=== PATIENT | male | born 1960 | race Caucasian/White ===

== ENCOUNTER 2018-06-22 18:21 | Emergency (ER) | payer BC ==
--- NOTE | 2018-06-22 18:38 | PDOC ---
Rapid Medical Evaluation Time Seen by Provider: 06/22/18 18:36 Medical Evaluation: I have performed a brief in-person evaluation of this patient. The patient presents with a chief complaint of: irritation to right underarm Pertinent physical exam findings: abscess with surrounding cellulitis of right axillary region I have ordered the following: nothing The patient will proceed to the ED for further evaluation. Discharge Disposition - Diagnosis Cellulitis, Abscess - Referrals Referrals: Nohemi Coates [Primary Care Provider] - - Patient Instructions - Post Discharge Activity
[2018-06-22 18:42] VITALS: BP 152/90; PULSE 100; TEMP 99; BMI 38.0
--- NOTE | 2018-06-22 19:35 | PDOC ---
History of Present Illness - General Chief Complaint: Abscess Boil Stated Complaint: RASH Time Seen by Provider: 06/22/18 18:36 History Source: Patient Exam Limitations: No Limitations - History of Present Illness Initial Comments: 06/22/18 19:30 57-year-old male with no past medical history presents to ED with complaints of irritation redness and swelling under his right armpit over the past 2 days. Patient states he was utilizing crutches secondary to a knee injury is currently resting his weight on his arm pits. Timing/Duration: reports: getting worse Severity: Yes: mild Location: reports: none Respiratory Risk Factors: reports: no cause identified Associated Symptoms: reports: edema, swelling/mass/lumps Past History - Travel Traveled outside of the country in the last 30 days: No - Past Medical History Home Medications: Ambulatory Orders Naproxen [Naprosyn -] 250 mg PO BID 06/22/18 CVA: No COPD: No DVT: No - Immunization History Immunization Up to Date: Yes - Suicide/Smoking/Psychosocial Hx Smoking History: Never smoked Hx Alcohol Use: No Drug/Substance Use Hx: No Substance Use Type: None Patient Lives Alone: Yes Lives with/in: lives alone Review of Systems - Review of Systems Able to Perform ROS?: No Constitutional: No: Symptoms Reported Integumentary: Yes: Erythema, Lumps Neurological: No: Symptoms reported Endocrine: No: Symptoms Reported *Physical Exam - Vital Signs Last Vital Signs Temp Pulse Resp BP Pulse Ox 99.0 F 100 H 16 152/90 99 06/22/18 18:38 06/22/18 18:38 06/22/18 18:38 06/22/18 18:38 06/22/18 18:38 - Physical Exam General Appearance: Yes: Nourished, Appropriately Dressed. No: Apparent Distress Integumentary: positive: Other (Noted multiple erythematous warm to touch abscesses to the right axilla. Surrounding skin mildly erythematous with no increased warmth. No drainage noted. No adenopathy) Neurologic: positive: Motor Strength 5/5 (ambulatory) Procedures - Incision and Drainage I&D Site: Right: Axilla Betadine cleansed: Yes Anesthesia: 1% Lidocaine w/ Epi Volume(ml): 1 Blade Size: 11 Attempts: 2 Complications: none Dressing: Yes Medical Decision Making - Medical Decision Making 06/22/18 19:32 Patient with noted multiple axillary abscesses. I&D done without difficulty. Wound culture obtained. Discharge home with Bactrim and supportive care instructions *DC/Admit/Observation/Transfer Diagnosis at time of Disposition: Cellulitis, Abscess - Discharge Dispostion Disposition: HOME Condition at time of disposition: Improved - Referrals Referrals: Nohemi Coates [Primary Care Provider] - - Patient Instructions Printed Discharge Instructions: DI for Incision and Drainage of a Skin Abscess Additional Instructions: Please apply warm soaks of constant heat 15 minutes 4 times a day as discussed for the next days. Please take antibiotics as prescribed. Please do not apply any topicals including deodorant to the area. If symptoms do not improve over the next 3-4 days please return to the ED. Otherwise he may follow up with your PCP. - Post Discharge Activity
== END 2018-06-22 19:48 | disposition home or self-care (01) ==
LOC: JERFT 18:21 → JER 18:21 → JERFT 19:48
PROC: 0X940ZZ Drainage of Right Axilla, Open Approach (ICD-10-PCS; principal; 2018-06-22)
DX: L02.411 Cutaneous abscess of right axilla (principal); L03.111 Cellulitis of right axilla
CPT/HCPCS: 87070; 87186; 87205; 99281-25

== ENCOUNTER 2018-07-30 05:23 | Day surgery (SDC) | payer BC, OTHER ==
[2018-07-22 12:39] VITALS: BMI 46.7
--- NOTE | 2018-07-30 09:40 | HP ---
Satellite [facility] - Chief Complaint Chief Complaint: R KNEE PAIN History Source: Patient - Past Medical History Allergies/Adverse Reactions: Allergies Allergy/AdvReac Type Severity Reaction Status Date / Time No Known Drug Allergies Allergy Verified 07/22/18 12:25 - Current Medications Current Medications: Home Medications Medication Instructions Recorded Naproxen [Naprosyn -] 250 mg PO BID 06/22/18 Ascorbic Acid [Vitamin C -] 1,000 mg PO DAILY 07/22/18 Aspirin Coated [Ecotrin -] 325 mg PO DAILY 07/22/18 Multivitamin [One Daily] 1 each PO DAILY 07/22/18 [place]-3 Fatty Acids/Fish Oil [Fish 1 each PO DAILY 07/22/18 Oil 1,000 mg Capsule] Vitamin E 1,000 unit PO DAILY 07/22/18 Satellite Physical Exam - Physical Examination Vital Signs: Vital Signs Period Temp Pulse Resp BP Sys/Ho Pulse Ox Last 24 Hr 97.9 F-97.9 F 90-90 18-18 141-141/95-95 97 Extremities: Other (+ RIGHT KNEE JOINT LINE TENDERNESS) Satellite Impression/Plan - Impression/Plan Impression: INTERNAL DERANGEMENT RIGHT KNEE Operative Procedure: ARTHROSCOPY RIGHT KNEE Date to be Performed: 07/30/18
[2018-07-30] MEDS ORDERED: BUPIVACAINE HCL/PF 0.5% (5MG/ML) 10 ML VIAL ONE (09:50)
[2018-07-30] MEDS ORDERED: LIDOCAINE 1%/EPI 1:100000 (20 ML MULTI DOSE VIAL) ONE (09:50)
[2018-07-30] MEDS ORDERED: ACETAMINOPHEN INJECTION 100 ML IVPB ONE (09:55)
[2018-07-30] MEDS ORDERED: PROPOFOL 20 ML ONE ×5 (10:31)
[2018-07-30] MEDS ORDERED: LIDOCAINE 1%/EPI 1:100000 (50 ML MULTI DOSE VIAL) INF ONE (10:51)
[2018-07-30] MEDS ORDERED: BUPIVACAINE HCL/PF (5 MG/ML) 30 ML VIAL IJ ONE (10:55)
[2018-07-30] MEDS ORDERED: KETOROLAC TROMETHAMINE 30 MG/1 ML VIAL ONE (11:11)
--- NOTE | 2018-07-30 11:20 | OP ---
Operative Note - Note: Operative Date: 07/30/18 Pre-Operative Diagnosis: INTERNAL DERANGEMENT R KNEE Operation: ARTHROSCOPY R KNEE WITH MM AND CHONDROPLASTY MFC,M TIB PLAT Post-Operative Diagnosis: Same as Pre-op Surgeon: Jordon Diamond Anesthesia: General Operative Report Dictated: Yes
[2018-07-30 12:12] VITALS: TEMP 98.4
[2018-07-30] MEDS ORDERED: oxyCODONE HCL 5 MG TABLET PO PRN ×2 (12:50)
[2018-07-30] MEDS ORDERED: ONDANSETRON 4 MG/2 ML VIAL IVPUSH PRN (12:50)
[2018-07-30] MEDS ORDERED: LACTATED RINGERS SOLUTION 1,000 ML IV SCH (13:00)
[2018-07-30] MEDS ORDERED: oxyCODONE HCL 5 MG TABLET PO ONE (13:00)
[2018-07-30 17:37] VITALS: BP 120/80; PULSE 84
--- NOTE | 2018-07-31 08:38 | OP ---
DATE OF OPERATION: 07/30/2018 PREOPERATIVE DIAGNOSIS: Internal derangement, right knee. POSTOPERATIVE DIAGNOSIS: Internal derangement, right knee. PROCEDURE: Arthroscopy, right knee, with partial medial meniscectomy and chondroplasty of the medial femoral condyle and medial tibial plateau. SURGICAL ATTENDING: Jordon Diamnod MD ANESTHESIA: General with LMA. CLOSURE: 4-0 nylon. COMPLICATIONS: None. CONDITION: To recovery room in stable condition. DESCRIPTION OF OPERATIVE PROCEDURE: Patient was taken to the operating room on July 30, 2018. General anesthesia with LMA was administered by the anesthesiologist. Right lower extremity was prepped and draped in the usual sterile fashion. The medial and lateral infrapatellar portal sites were infiltrated with 1% Xylocaine with epinephrine. Both portals were then made with a 15 blade followed by blunt trocar. Scope trocar was then placed up into the suprapatellar pouch through the lateral infrapatellar portal. The knee was inflated with a cocktail of 10 mL of 1% Xylocaine, 10 mL of 0.5% Marcaine, 20 mL of arthroscopic saline. After allowing the anesthetic to work inside the knee, the procedure was performed. The pouch was visualized to be clean. The medial and lateral gutters were visualized to be clean. The undersurfaces of the patella and trochlea were visualized to be intact. With valgus stress on the knee, the medial compartment was entered. The medial meniscus was visualized, probed, and found to have a complex tear on its posterior horn. This was debrided back to smooth, stable meniscal tissue with meniscal biter and arthroscopic shaver. The medial femoral condyle was also found to have some grade 2-3 changes. Any loose cartilage was debrided using the shaver. The posteromedial aspect of the tibial plateau also was found to have some significant changes, grade 3-4, and any loose cartilage was debrided using the shaver. At 90 degrees, the ACL was visualized, probed, and found to be intact. In the figure 4 position, the lateral compartment was entered. The lateral meniscus was visualized, probed, and found to be intact. The lateral femoral condyle was run and found to be intact as was the lateral tibial plateau. The knee was irrigated with copious amounts of irrigation. Fluid was drained. The portals were both closed using 4-0 nylon suture. Prior to pulling the scope trocar, 20 mL of 0.5% Marcaine was infused through the cannula for postoperative analgesia. A sterile pressure dressing was placed over the knee. Patient was awakened from anesthesia and transferred to recovery in stable condition. No complications. Estimated blood loss negligible. Cb WEINBERG/[id number]
== END 2018-07-30 14:45 | disposition home or self-care (01) ==
LOC: JASU-SURG 05:23
PROVIDERS: ATTEND Orthopaedic Surgery
PROC: 0SBC4ZZ Excision of Right Knee Joint, Percutaneous Endoscopic Approach (ICD-10-PCS; principal; 2018-07-30 10:15)
DX: S83.231A Complex tear of medial meniscus, current injury, right knee, initial encounter (principal); X58.XXXA Exposure to other specified factors, initial encounter; Y93.9 Activity, unspecified; Y92.9 Unspecified place or not applicable; Y99.9 Unspecified external cause status
CPT/HCPCS: 94760; J0131

== ENCOUNTER 2018-10-06 11:35 | Emergency (ER) | payer BC, OTHER ==
[2018-10-06 11:43] VITALS: BP 130/91; PULSE 96; TEMP 98.6; BMI 44.3
--- NOTE | 2018-10-06 12:16 | PDOC ---
History of Present Illness - General Chief Complaint: Redness To Affected Area Stated Complaint: RASH Time Seen by Provider: 10/06/18 12:13 History Source: Patient Exam Limitations: No Limitations - History of Present Illness Initial Comments: 10/06/18 12:30 CHIEF COMPLAINT: Redness HISTORY OF PRESENT ILLNESS: This is a 57-year-old male with a history of right axillary abscess (MRSA) and meniscus repair who presents with one day of right forearm redness, swelling, and warmth. There is a hard central area nd he reports trying to squeeze pus out of it, but was unable to. He denies fevers/ chills or any other systemic symptoms. Vital signs on arrival are notable for pulse of 96. REVIEW OF SYSTEMS: GENERAL/CONSTITUTIONAL: No fever or chills. No weakness. No weight change. RESPIRATORY: No cough, wheezing, or shortness of breath. MUSCULOSKELETAL: No joint or muscle swelling or pain. No neck or back pain. SKIN: See HPI. HEMATOLOGIC/LYMPHATIC: No anemia, easy bleeding, or history of blood clots. ALLERGIC/IMMUNOLOGIC: No hives or skin allergy. No latex allergy. PHYSICAL EXAM: GENERAL: The patient is awake, alert, and fully oriented, in no acute distress. ENT: Pupils equal, round and reactive to light, extraocular movements intact, sclera anicteric, conjunctiva clear. Neck supple. EXTREMITIES: Normal range of motion, no edema. NEUROLOGICAL: Normal speech, normal gait. CN II-XII grossly intact. PSYCH: Normal mood, normal affect. SKIN: Well-circumscribed area of erythema and warmth with central induration, no fluctance. No lymphangitic streaking. Past History - Past Medical History Allergies/Adverse Reactions: Allergies Allergy/AdvReac Type Severity Reaction Status Date / Time No Known Drug Allergies Allergy Verified 07/22/18 12:25 Home Medications: Ambulatory Orders Naproxen [Naprosyn -] 550 mg PO BID 06/22/18 Ascorbic Acid [Vitamin C -] 1,000 mg PO DAILY 07/22/18 Aspirin Coated [Ecotrin -] 325 mg PO DAILY 07/22/18 Multivitamin [One Daily] 1 each PO DAILY 07/22/18 [place]-3 Fatty Acids/Fish Oil [Fish Oil 1,000 mg Capsule] 1 each PO DAILY Vitamin E 1,000 unit PO DAILY 07/22/18 Mupirocin Ointment [Bactroban 2% Ointment -] 1 applic TP BID #1 tube 10/06/18 Sulfamethoxazole/Trimethoprim [Bactrim Ds Tablet] 1 each PO BID #14 tablet 10/06 Anemia: No Asthma: No Cancer: No Cardiac Disorders: No CVA: No COPD: No CHF: No DVT: No Dementia: No Diabetes: No GI Disorders: No Disorders: No HTN: Yes Hypercholesterolemia: Yes Liver Disease: No Seizures: No Thyroid Disease: No - Immunization History Immunization Up to Date: Yes - Suicide/Smoking/Psychosocial Hx Smoking History: Never smoked Have you smoked in the past 12 months: No Information on smoking cessation initiated: No Hx Alcohol Use: No Drug/Substance Use Hx: No Substance Use Type: None Hx Substance Use Treatment: No *Physical Exam - Vital Signs Last Vital Signs Temp Pulse Resp BP Pulse Ox 98.6 F 96 H 16 130/91 95 10/06/18 11:40 10/06/18 11:40 10/06/18 11:40 10/06/18 11:40 10/06/18 11:40 Moderate Sedation - Procedure Monitoring Vital Signs: Procedure Monitoring Vital Signs Temperature 98.6 F 10/06/18 11:40 Pulse Rate 96 H 10/06/18 11:40 Respiratory Rate 16 10/06/18 11:40 Blood Pressure 130/91 10/06/18 11:40 O2 Sat by Pulse Oximetry (%) 95 10/06/18 11:40 Medical Decision Making - Medical Decision Making 10/06/18 12:34 A/P: 57-year-old male with history of MRSA presenting with right forearm erythema, warmth suspicious for cellulitis. No drainable abscess. No systemic symptoms -Patient offered Dalvance, but does not want IV -Will treat with Bactrim DS bid and Mupirocin ointment -Counseled warm compresses -Outlined affected area -Followup instructions and return precautions reviewed HR repeated and 82. *DC/Admit/Observation/Transfer Diagnosis at time of Disposition: Cellulitis Qualifiers: Site of cellulitis: extremity Site of cellulitis of extremity: upper extremity Laterality: right Qualified Code(s): L03.113 - Cellulitis of right upper limb - Discharge Dispostion Disposition: HOME Condition at time of disposition: Stable Decision to Admit order: No - Prescriptions Prescriptions: Mupirocin Ointment [Bactroban 2% Ointment -] 1 applic TP BID #1 tube Sulfamethoxazole/Trimethoprim [Bactrim Ds Tablet] 1 each PO BID #14 tablet - Referrals Referrals: [facility] [place] [Provider Group] - Patient Instructions Printed Discharge Instructions: DI for Cellulitis -- Adult, DI for Methicillin- Resistant Staph Infection (MRSA) Additional Instructions: -Take Bactrim as prescribed for the full course and use Mupirocin ointment as prescribed -Apply warm compresses several times daily -Return here if you see redness spreading outside the outlined area, if you develop fever, or for any other concerning symptoms - Post Discharge Activity
[2018-10-06] MEDS ORDERED: SULFAMETHOXAZOLE/TRIMETHOPRIM 800MG/160MG D.S. TABLET PO ONE (12:23)
[2018-10-06] MEDS ORDERED: SULFAMETHOXAZOLE/TRIMETHOPRIM 800MG/160MG D.S. TABLET ONE (12:28)
--- NOTE | 2018-10-06 12:39 | PDOC ---
*Physical Exam - Vital Signs Last Vital Signs Temp Pulse Resp BP Pulse Ox 98.6 F 96 H 16 130/91 95 10/06/18 11:40 10/06/18 11:40 10/06/18 11:40 10/06/18 11:40 10/06/18 11:40 ED Treatment Course - Medications Given in the ED: ED Medications Discontinued Medications Generic Name Dose Route Start Last Admin Trade Name Freq PRN Reason Stop Dose Admin Trimethoprim/Sulfamethoxazole 1 each 10/06/18 12:23 10/06/18 12:29 Bactrim Ds - PO 10/06/18 12:24 1 each ONCE ONE Administration Medical Decision Making - Medical Decision Making 10/06/18 12:38 Pt seen by Midlevel Provider under my direct supervision Pt interviewed and examined I agree with plan as outlined by Midlevel Provider *DC/Admit/Observation/Transfer Diagnosis at time of Disposition: Cellulitis Qualifiers: Site of cellulitis: extremity Site of cellulitis of extremity: upper extremity Laterality: right Qualified Code(s): L03.113 - Cellulitis of right upper limb - Discharge Dispostion Disposition: HOME Condition at time of disposition: Stable - Prescriptions Prescriptions: Mupirocin Ointment [Bactroban 2% Ointment -] 1 applic TP BID #1 tube Sulfamethoxazole/Trimethoprim [Bactrim Ds Tablet] 1 each PO BID #14 tablet - Referrals Referrals: [facility] [place] [Provider Group] - Patient Instructions Printed Discharge Instructions: DI for Cellulitis -- Adult, DI for Methicillin- Resistant Staph Infection (MRSA) Additional Instructions: -Take Bactrim as prescribed for the full course and use Mupirocin ointment as prescribed -Apply warm compresses several times daily -Return here if you see redness spreading outside the outlined area, if you develop fever, or for any other concerning symptoms - Post Discharge Activity
== END 2018-10-06 12:53 | disposition home or self-care (01) ==
LOC: JER 11:35
DX: L03.113 Cellulitis of right upper limb (principal); Z86.14 Personal history of Methicillin resistant Staphylococcus aureus infection
CPT/HCPCS: 99281-25

== ENCOUNTER 2019-03-26 06:20 | Emergency (ER) | payer BC ==
[2019-03-26 06:47] VITALS: BP 143/89; PULSE 85; TEMP 98.3; BMI 46.0
--- NOTE | 2019-03-26 07:06 | PDOC ---
History of Present Illness - General Chief Complaint: Abscess Boil Stated Complaint: INSECT BITE Time Seen by Provider: 03/26/19 07:06 History Source: Patient Exam Limitations: No Limitations - History of Present Illness Initial Comments: 03/26/19 07:26 CHIEF COMPLAINT: This is a 58-year-old male with a history of right axillary abscess (MRSA), ED visit for right arm cellulitis treated with Bactrim, and meniscus repair who presents with one day of left-sided abdominal redness, swelling, and tenderness. He reports that he was able to squeeze a small amount of pus out of the area yesterday. He denies fevers/chills or any other systemic symptoms. Vital signs on arrival are unremarkable. HISTORY OF PRESENT ILLNESS: REVIEW OF SYSTEMS: GENERAL/CONSTITUTIONAL: No fever or chills. No weakness. No weight change. HEAD, EYES, EARS, NOSE AND THROAT: No change in vision. No ear pain or discharge. No sore throat. CARDIOVASCULAR: No chest pain or palpitations. RESPIRATORY: No cough, wheezing, or shortness of breath. GASTROINTESTINAL: No nausea, vomiting, diarrhea or constipation. GENITOURINARY: No dysuria, frequency, or change in urination. MUSCULOSKELETAL: No joint or muscle swelling or pain. No neck or back pain. SKIN: See HPI. ALLERGIC/IMMUNOLOGIC: No hives or skin allergy. No latex allergy. PHYSICAL EXAM: GENERAL: The patient is awake, alert, and fully oriented, in no acute distress. HEAD: Normal with no signs of trauma. ENT: Pupils equal, round and reactive to light, extraocular movements intact, sclera anicteric, conjunctiva clear. Neck supple. LUNGS: Clear to auscultation bilaterally. Normal excursion. No respiratory distress or use of accessory muscles. CV: RRR, S1/S2, no MRG. Cap refill < 2 sec. ABDOMEN: Soft, non-distended, non-tender. 14 x 14cm of erythema with central lesion; no fluctuance or drainage, mild induration. EXTREMITIES: Normal range of motion, no edema. NEUROLOGICAL: Normal speech, normal gait. CN II-XII grossly intact. PSYCH: Anxious affect. Past History - Past Medical History Allergies/Adverse Reactions: Allergies Allergy/AdvReac Type Severity Reaction Status Date / Time No Known Drug Allergies Allergy Verified 03/26/19 06:44 Home Medications: Ambulatory Orders Naproxen [Naprosyn -] 550 mg PO BID 06/22/18 Ascorbic Acid [Vitamin C -] 1,000 mg PO DAILY 07/22/18 Aspirin Coated [Ecotrin -] 325 mg PO DAILY 07/22/18 Multivitamin [One Daily] 1 each PO DAILY 07/22/18 [place]-3 Fatty Acids/Fish Oil [Fish Oil 1,000 mg Capsule] 1 each PO DAILY Vitamin E 1,000 unit PO DAILY 07/22/18 Mupirocin Ointment [Bactroban 2% Ointment -] 1 applic TP BID #1 tube 10/06/18 Sulfamethoxazole/Trimethoprim [Bactrim Ds Tablet] 1 each PO BID #14 tablet 10/06 Chlorhexidine Gluconate [Hibiclens For Decolonization -] 1 applic TP DAILY #1 bottle 03/26/19 Mupirocin 22 gm TP BID #1 oint...g. 03/26/19 Sulfamethoxazole/Trimethoprim [Bactrim Ds -] 1 tab PO BID #14 tablet 03/26/19 Anemia: No Asthma: No Cancer: No Cardiac Disorders: No CVA: No COPD: No CHF: No DVT: No Dementia: No Diabetes: No GI Disorders: No Disorders: No HTN: Yes Hypercholesterolemia: Yes Liver Disease: No Seizures: No Thyroid Disease: No - Immunization History Immunization Up to Date: Yes - Suicide/Smoking/Psychosocial Hx Smoking History: Never smoked Have you smoked in the past 12 months: No Information on smoking cessation initiated: No Hx Alcohol Use: No Drug/Substance Use Hx: No Substance Use Type: None Hx Substance Use Treatment: No *Physical Exam - Vital Signs Last Vital Signs Temp Pulse Resp BP Pulse Ox 98.3 F 85 20 143/89 98 03/26/19 06:45 03/26/19 06:45 03/26/19 06:45 03/26/19 06:45 03/26/19 06:45 Medical Decision Making - Medical Decision Making 03/26/19 08:11 A/P: 58-year-old male with abdominal cellulitis, 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 -Recommended to the patient that he have at least one dose of IV antibiotics because of high risk location of cellulitis, he refuses this -Will treat with Bactrim/mupirocin and prescribed decolonization -Recommended infectious disease follow-up -Follow-up instructions and return precautions reviewed *DC/Admit/Observation/Transfer Diagnosis at time of Disposition: Cellulitis - Discharge Dispostion Disposition: HOME Condition at time of disposition: Stable Decision to Admit order: No - Prescriptions Prescriptions: Chlorhexidine Gluconate [Hibiclens For Decolonization -] 1 applic TP DAILY #1 bottle Mupirocin 22 gm TP BID #1 oint...g. Sulfamethoxazole/Trimethoprim [Bactrim Ds -] 1 tab PO BID #14 tablet - Referrals Referrals: Tania Hou MD [Staff Physician] - 1 week (Infectious disease specialist - please follow up for recurrent MRSA infection) - Patient Instructions Printed Discharge Instructions: DI for Methicillin-Resistant Staph Infection ( MRSA) Additional Instructions: -You were recommended to have IV antibiotics, but declined -Please take Bactrim twice daily as prescribed -Use the Hibiclens soap daily in the shower (except on face and genital area) -Use the Mupirocin ointment twice a day on the abdomen and in both nostrils for 10 days -Follow up with the infectious disease specialist (referral enclosed) -Return here for fever (temperature more than 100.4) or chills, redness spreading outside the outlined area, or any other concerning symptoms - Post Discharge Activity
[2019-03-26] MEDS ORDERED: SULFAMETHOXAZOLE/TRIMETHOPRIM 800MG/160MG D.S. TABLET PO ONE (07:14)
[2019-03-26] MEDS ORDERED: SULFAMETHOXAZOLE/TRIMETHOPRIM 800MG/160MG D.S. TABLET ONE (07:20)
== END 2019-03-26 07:26 | disposition home or self-care (01) ==
LOC: JER 06:20
DX: L03.311 Cellulitis of abdominal wall (principal); I10 Essential (primary) hypertension; E78.00 Pure hypercholesterolemia, unspecified
CPT/HCPCS: 99282-25

== ENCOUNTER 2019-07-24 14:08 | Emergency (ER) | payer BC ==
[2019-07-24 14:28] VITALS: BP 157/87; PULSE 91; TEMP 98; BMI 44.3
--- NOTE | 2019-07-24 14:53 | PDOC ---
History of Present Illness - General Chief Complaint: Eye Problem Stated Complaint: L EYE SWOLLEN Time Seen by Provider: 07/24/19 14:25 History Source: Patient - History of Present Illness Timing/Duration: other Past History - Past Medical History Allergies/Adverse Reactions: Allergies Allergy/AdvReac Type Severity Reaction Status Date / Time No Known Drug Allergies Allergy Verified 07/24/19 14:22 Home Medications: Ambulatory Orders Naproxen [Naprosyn -] 550 mg PO BID 06/22/18 Ascorbic Acid [Vitamin C -] 1,000 mg PO DAILY 07/22/18 Aspirin Coated [Ecotrin -] 325 mg PO DAILY 07/22/18 Multivitamin [One Daily] 1 each PO DAILY 07/22/18 [place]-3 Fatty Acids/Fish Oil [Fish Oil 1,000 mg Capsule] 1 each PO DAILY Vitamin E 1,000 unit PO DAILY 07/22/18 Mupirocin Ointment [Bactroban 2% Ointment -] 1 applic TP BID #1 tube 10/06/18 Sulfamethoxazole/Trimethoprim [Bactrim Ds Tablet] 1 each PO BID #14 tablet 10/06 Chlorhexidine Gluconate [Hibiclens For Decolonization -] 1 applic TP DAILY #1 bottle 03/26/19 Mupirocin 22 gm TP BID #1 oint...g. 03/26/19 Sulfamethoxazole/Trimethoprim [Bactrim Ds -] 1 tab PO BID #14 tablet 03/26/19 Bacitracin Ophthalmic Oint - 0.5 inch TP BID #1 tube 07/24/19 Anemia: No Asthma: No Cancer: No Cardiac Disorders: No CVA: No COPD: No CHF: No DVT: No Dementia: No Diabetes: No GI Disorders: No Disorders: No HTN: Yes Hypercholesterolemia: Yes Liver Disease: No Seizures: No Thyroid Disease: No - Immunization History Immunization Up to Date: Yes - Psycho Social/Smoking Cessation Hx Smoking History: Never smoked Have you smoked in the past 12 months: No Hx Alcohol Use: No Drug/Substance Use Hx: No Substance Use Type: None Hx Substance Use Treatment: No Review of Systems - Review of Systems Constitutional: No: Chills, Fever HEENTM: Yes: Eye Pain. No: Tearing *Physical Exam - Vital Signs Last Vital Signs Temp Pulse Resp BP Pulse Ox 98 F 91 H 18 157/87 99 11/03/19 14:19 07/24/19 14:19 07/24/19 14:19 07/24/19 14:19 07/24/19 14:19 - Physical Exam General Appearance: Yes: Appropriately Dressed. No: Apparent Distress HEENT: positive: Normal Voice, Other (minimal edema to L eyelid w/ ttp, no sig erythema, no lesion on lid eversion, conjunctiva clear, no discharge or tearing) Neck: positive: Supple Respiratory/Chest: negative: Respiratory Distress Integumentary: positive: Dry, Warm Neurologic: positive: Fully Oriented, Alert, Normal Mood/Affect Medical Decision Making - Medical Decision Making 07/24/19 14:55 58 yo M, no sig hx, here w/ L eyelid pain/swelling since last night. No trauma. No fb sensation, visual changes, discharge or tearing. No contact lens use see exam Possible early sty to R eyelid -Dc w/ warm compresses and top abx -To return as needed Discharge - Discharge Information Problems reviewed: Yes Clinical Impression/Diagnosis: Swollen eyelid Qualifiers: Laterality: left Qualified Code(s): H02.846 - Edema of left eye, unspecified eyelid Condition: Good Disposition: HOME - Additional Discharge Information Prescriptions: Bacitracin Ophthalmic Oint - 0.5 inch TP BID #1 tube - Follow up/Referral Referrals: Nohemi Coates [Primary Care Provider] - - Patient Discharge Instructions Patient Printed Discharge Instructions: [place] Additional Instructions: Apply warm compresses 3-4 times a day to site and apply topical antibiotics as directed Return as needed - Post Discharge Activity
[2019-07-24] MEDS ORDERED: ERYTHROMYCIN 0.5% OPHTHALMIC OINTMENT 3.5 GM TUBE OS ONE (16:05)
== END 2019-07-24 14:50 | disposition home or self-care (01) ==
LOC: JERFT 14:08
DX: H02.846 Edema of left eye, unspecified eyelid (principal); I10 Essential (primary) hypertension; E78.00 Pure hypercholesterolemia, unspecified
CPT/HCPCS: 99281-25

== ENCOUNTER 2019-08-13 19:27 | Emergency (ER) | payer BC ==
[2019-08-13 19:34] VITALS: BP 136/77; PULSE 95; TEMP 98.1; BMI 44.3
[2019-08-13] MEDS ORDERED: METHOCARBAMOL 500 MG TABLET PO ONE (20:32)
[2019-08-13] MEDS ORDERED: KETOROLAC TROMETHAMINE 60 MG/2 ML VIAL IM ONE (20:32)
[2019-08-13] MEDS ORDERED: METHOCARBAMOL 500 MG TABLET ONE (20:35)
[2019-08-13] MEDS ORDERED: KETOROLAC TROMETHAMINE 60 MG/2 ML VIAL ONE (20:35)
[2019-08-13] MEDS ORDERED: LIDOCAINE 5% TOPICAL PATCH TP ONE (20:44)
--- NOTE | 2019-08-13 20:50 | PDOC ---
History of Present Illness - General Chief Complaint: Back Pain Stated Complaint: MUSCLE SPASM/SACRAL REGION Time Seen by Provider: 08/13/19 20:17 History Source: Patient Exam Limitations: Clinical Condition - History of Present Illness Initial Comments: 08/13/19 20:46 Patient with past medical history of chronic back pain is in with complaint of 5 -day history of back spasm with pain radiating to posterior right leg. Patient reported he was seen by PCP who prescribed him tramadol and Flexeril but has not been helping pain. Patient report history of sciatica. Patient was sent for MRI by PCP which patient had done today. Denies saddle paresthesia, urinary fecal incontinence. Denies any other symptoms Occurred: reports: other (5 days) Severity: reports: severe Pain Location: reports: back Past History - Past Medical History Allergies/Adverse Reactions: Allergies Allergy/AdvReac Type Severity Reaction Status Date / Time No Known Drug Allergies Allergy Verified 08/13/19 19:34 Home Medications: Ambulatory Orders Naproxen [Naprosyn -] 550 mg PO BID 06/22/18 Ascorbic Acid [Vitamin C -] 1,000 mg PO DAILY 07/22/18 Aspirin Coated [Ecotrin -] 325 mg PO DAILY 07/22/18 Multivitamin [One Daily] 1 each PO DAILY 07/22/18 [place]-3 Fatty Acids/Fish Oil [Fish Oil 1,000 mg Capsule] 1 each PO DAILY Vitamin E 1,000 unit PO DAILY 07/22/18 Mupirocin Ointment [Bactroban 2% Ointment -] 1 applic TP BID #1 tube 10/06/18 Sulfamethoxazole/Trimethoprim [Bactrim Ds Tablet] 1 each PO BID #14 tablet 10/06 Chlorhexidine Gluconate [Hibiclens For Decolonization -] 1 applic TP DAILY #1 bottle 03/26/19 Mupirocin 22 gm TP BID #1 oint...g. 03/26/19 Sulfamethoxazole/Trimethoprim [Bactrim Ds -] 1 tab PO BID #14 tablet 03/26/19 Bacitracin Ophthalmic Oint - 0.5 inch TP BID #1 tube 07/24/19 Erythromycin 0.5% Eye Ointment [Erythromycin 0.5% Eye Ointment -] 1 applic OS DAILY #1 tube 07/24/19 Ketorolac Tromethamine [Toradol] 10 mg PO TID PRN #21 tablet 08/13/19 Lidocaine 5% Patch [Lidoderm -] 1 patch TP DAILY #30 patch 08/13/19 Methocarbamol [Robaxin -] 750 mg PO Q8H PRN #20 tablet 08/13/19 Anemia: No Asthma: No Cancer: No Cardiac Disorders: No CVA: No COPD: No CHF: No DVT: No Dementia: No Diabetes: No GI Disorders: No Disorders: No HTN: Yes Hypercholesterolemia: Yes Liver Disease: No Seizures: No Thyroid Disease: No - Immunization History Immunization Up to Date: Yes - Psycho Social/Smoking Cessation Hx Smoking History: Never smoked Have you smoked in the past 12 months: No Information on smoking cessation initiated: Yes Hx Alcohol Use: No Drug/Substance Use Hx: No Substance Use Type: None Hx Substance Use Treatment: No Review of Systems - Review of Systems Able to Perform ROS?: Yes Is the patient limited Armenian proficient: No Constitutional: No: Malaise, Weakness HEENTM: No: Symptoms Reported Respiratory: No: Symptoms reported Cardiac (ROS): No: Symptoms Reported ABD/GI: No: Symptoms Reported Musculoskeletal: Yes: Symptoms Reported, See HPI, Back Pain, Muscle Pain (lower back spasm). No: Muscle Weakness Integumentary: No: Symptoms Reported Neurological: Yes: Tingling. No: Symptoms reported, Numbness, Paresthesia, Weakness, Dizziness All Other Systems: Reviewed and Negative *Physical Exam - Vital Signs Last Vital Signs Temp Pulse Resp BP Pulse Ox 98.1 F 95 H 20 136/77 96 08/13/19 19:28 08/13/19 19:28 08/13/19 19:28 08/13/19 19:28 08/13/19 19:28 - Physical Exam Comments: 08/13/19 20:49 GENERAL: Well developed, well nourished. Awake and alert. No acute distress. PULMONARY: No evidence of respiratory distress. MUSCULOSKELETAL : Moderate tenderness over posterior paravertebral muscle of lumbosacral spine of L4-S2 on bilateral sides. No bony deformities SKIN: Warm and dry. Normal capillary refill. NEUROLOGICAL: Alert, awake, appropriate. No motor deficits in the lower extremities. Gait is normal without ataxia. PSYCHIATRIC: Cooperative. Good eye contact. Appropriate mood and affect. General Appearance: Yes: Nourished, Appropriately Dressed, Apparent Distress, Moderate Distress ED Treatment Course - Medications Given in the ED: ED Medications Discontinued Medications Generic Name Dose Route Start Last Admin Trade Name Amos PRN Reason Stop Dose Admin Ketorolac Tromethamine 60 mg 08/13/19 20:32 08/13/19 20:40 Toradol Injection - IM 08/13/19 20:33 60 mg ONCE ONE Administration Methocarbamol 500 mg 08/13/19 20:32 08/13/19 20:40 Robaxin - PO 08/13/19 20:33 500 mg ONCE ONE Administration Medical Decision Making - Medical Decision Making 08/13/19 20:47 Patient with past medical history of chronic back pain is in with complaint of 5 -day history of back spasm with pain radiating to posterior right leg. Patient reported he was seen by PCP who prescribed him tramadol and Flexeril but has not been helping pain. Patient report history of sciatica. Patient was sent for MRI by PCP which patient had done today. Denies saddle paresthesia, urinary fecal incontinence. Denies any other symptoms Exam significant for moderate tenderness to bilateral paravertebral muscle in moderate acute distress. Patient symptoms likely sciatica due to back spasm. Toradol 60 mg IM ordered for pain and Robaxin 500 mg ordered for spasm. Treat based on lidocaine patch placed in lower back. Reassess after 20 minutes 08/13/19 21:45 Patient with mild improvement in symptoms. Patient stable for discharge on Toradol p.o. as needed for pain and Robaxin as needed for spasm with topical lidocaine patch with orthopedic spine follow-up Discharge - Discharge Information Problems reviewed: Yes Clinical Impression/Diagnosis: Lumbago with sciatica, right side Qualifiers: Chronicity: chronic Back pain laterality: right Qualified Code(s): M54.41 - Lumbago with sciatica, right side Condition: Stable Disposition: HOME - Admission No - Additional Discharge Information Prescriptions: Ketorolac Tromethamine [Toradol] 10 mg PO TID PRN #21 tablet PRN Reason: Back Pain Lidocaine 5% Patch [Lidoderm -] 1 patch TP DAILY #30 patch Methocarbamol [Robaxin -] 750 mg PO Q8H PRN #20 tablet PRN Reason: Back Pain - Follow up/Referral Referrals: Caleb Greenwood MD, [facility] [Staff Physician] - - Patient Discharge Instructions Patient Printed Discharge Instructions: DI for Back Pain With Sciatica Additional Instructions: Take prescribed medication as prescribed for back pain. Apply heat therapy to lower back 2-3 times a day as needed for pain. Follow-up with referred spine diabetes solutions specialist - Post Discharge Activity
[2019-08-13] MEDS ORDERED: LIDOCAINE 5% TOPICAL PATCH ONE (21:05)
== END 2019-08-13 21:35 | disposition home or self-care (01) ==
LOC: JERFT 19:27
PROC: 3E0233Z Introduction of Anti-inflammatory into Muscle, Percutaneous Approach (ICD-10-PCS; principal; 2019-08-13)
DX: M54.41 Lumbago with sciatica, right side (principal); I10 Essential (primary) hypertension; E78.00 Pure hypercholesterolemia, unspecified
CPT/HCPCS: 99282-25

== ENCOUNTER 2019-09-03 23:07 | Emergency (ER) | payer BC ==
[2019-09-03 23:21] VITALS: BP 153/84; PULSE 91; TEMP 98.7; BMI 44.3
--- NOTE | 2019-09-04 01:14 | PDOC ---
Documentation entered by Kamari Keyes SCRIBE, acting as scribe for James Cloud MD. James Cloud MD: This documentation has been prepared by the Wali elizalde Xhesika, SCRIBE, under my direction and personally reviewed by me in its entirety. I confirm that the documentation accurately reflects all work, treatment, procedures, and medical decision making performed by me. History of Present Illness - General Chief Complaint: Pain Stated Complaint: SWOLLEN HAND Time Seen by Provider: 09/03/19 23:51 History Source: Patient Exam Limitations: No Limitations - History of Present Illness Initial Comments: 09/04/19 00:24 The patient is a 58 year old male, with a significant PMH of sciatica who presents to the emergency department with R hand abscess x 2days. The patient states initially the abscess looked like a white pimple, pt then squeezed the abscess and it drained white puss. Allergies: NKDA Past History - Past Medical History Allergies/Adverse Reactions: Allergies Allergy/AdvReac Type Severity Reaction Status Date / Time No Known Drug Allergies Allergy Verified 09/03/19 23:21 Home Medications: Ambulatory Orders Naproxen [Naprosyn -] 550 mg PO BID 06/22/18 Ascorbic Acid [Vitamin C -] 1,000 mg PO DAILY 07/22/18 Aspirin Coated [Ecotrin -] 325 mg PO DAILY 07/22/18 Multivitamin [One Daily] 1 each PO DAILY 07/22/18 [place]-3 Fatty Acids/Fish Oil [Fish Oil 1,000 mg Capsule] 1 each PO DAILY Vitamin E 1,000 unit PO DAILY 07/22/18 Mupirocin Ointment [Bactroban 2% Ointment -] 1 applic TP BID #1 tube 10/06/18 Sulfamethoxazole/Trimethoprim [Bactrim Ds Tablet] 1 each PO BID #14 tablet 10/06 Chlorhexidine Gluconate [Hibiclens For Decolonization -] 1 applic TP DAILY #1 bottle 03/26/19 Mupirocin 22 gm TP BID #1 oint...g. 03/26/19 Sulfamethoxazole/Trimethoprim [Bactrim Ds -] 1 tab PO BID #14 tablet 03/26/19 Bacitracin Ophthalmic Oint - 0.5 inch TP BID #1 tube 07/24/19 Erythromycin 0.5% Eye Ointment [Erythromycin 0.5% Eye Ointment -] 1 applic OS DAILY #1 tube 07/24/19 Ketorolac Tromethamine [Toradol] 10 mg PO TID PRN #21 tablet 08/13/19 Lidocaine 5% Patch [Lidoderm -] 1 patch TP DAILY #30 patch 08/13/19 Methocarbamol [Robaxin -] 750 mg PO Q8H PRN #20 tablet 08/13/19 Sulfamethoxazole/Trimethoprim [Bactrim Ds -] 1 tab PO BID #20 tablet 09/04/19 Anemia: No Asthma: No Cancer: No Cardiac Disorders: No CVA: No COPD: No CHF: No DVT: No Dementia: No Diabetes: No GI Disorders: No Disorders: No HTN: Yes Hypercholesterolemia: Yes Liver Disease: No Seizures: No Thyroid Disease: No - Immunization History Immunization Up to Date: Yes - Psycho Social/Smoking Cessation Hx Smoking History: Never smoked Have you smoked in the past 12 months: No Information on smoking cessation initiated: No Hx Alcohol Use: No Drug/Substance Use Hx: No Substance Use Type: None Hx Substance Use Treatment: No Review of Systems - Review of Systems Able to Perform ROS?: Yes Comments:: 09/04/19 00:25 GENERAL/CONSTITUTIONAL: No fever or chills. No weakness. HEAD, EYES, EARS, NOSE AND THROAT: No change in vision. No ear pain or discharge. No sore throat. CARDIOVASCULAR: No chest pain or shortness of breath. RESPIRATORY: No cough, wheezing, or hemoptysis. GASTROINTESTINAL: No nausea, vomiting, diarrhea or constipation. GENITOURINARY: No dysuria, frequency, or change in urination. MUSCULOSKELETAL: No joint or muscle swelling or pain. No neck or back pain. SKIN: +right hand abscess. NEUROLOGIC: No headache, vertigo, loss of consciousness, or change in strength/ sensation. ENDOCRINE: No increased thirst. No abnormal weight change. HEMATOLOGIC/LYMPHATIC: No anemia, easy bleeding, or history of blood clots. No Lymphangitis ALLERGIC/IMMUNOLOGIC: No hives or skin allergy. *Physical Exam - Vital Signs Last Vital Signs Temp Pulse Resp BP Pulse Ox 98.7 F 91 H 20 153/84 99 09/03/19 23:17 09/03/19 23:17 09/03/19 23:17 09/03/19 23:17 09/03/19 23:17 - Physical Exam 09/04/19 01:11 Patient with alert, morbidly obese, in no significant distress, ambulates with a walker nc, atr rrr cta r. hand: 2 cm area of induration and erythema to the lateral aspect of the dorsum of the right hand over the distal fifth metacarpal with a central fluctuant nidus consistent with an abscess; no evidence of lymphangitis or proximal lymphadenopathy ED Treatment Course - RADIOLOGY Radiology Studies Ordered: Category Date Time Status HAND- RIGHT [RAD] Stat Radiology 09/04/19 00:19 Taken Discharge - Discharge Information Problems reviewed: Yes Clinical Impression/Diagnosis: Abscess Cellulitis Qualifiers: Site of cellulitis: unspecified site Qualified Code(s): L03.90 - Cellulitis, unspecified Condition: Stable Disposition: HOME - Additional Discharge Information Prescriptions: Sulfamethoxazole/Trimethoprim [Bactrim Ds -] 1 tab PO BID #20 tablet - Follow up/Referral Referrals: King Alegre MD [Staff Physician] - - Patient Discharge Instructions Patient Printed Discharge Instructions: DI for Skin Abscess - Post Discharge Activity
== END 2019-09-04 01:22 | disposition home or self-care (01) ==
LOC: JER 23:07
DX: L03.90 Cellulitis, unspecified (principal); E66.01 Morbid (severe) obesity due to excess calories; Z99.89 Dependence on other enabling machines and devices
CPT/HCPCS: 73130-TC-RT-FY; 99281-25

== ENCOUNTER 2024-05-26 14:58 | Inpatient (IN) | payer BC ==
[2024-05-26 16:41] LABS: HEMATOCRIT 44.5 % (35.4-49); HEMOGLOBIN 14.7 GM/dL (11.7-16.9); MCH 27.6 pg (25.7-33.7); MCHC 33.1 g/dl (32.0-35.9); MEAN CELL VOLUME 83.3 fl (80-96); MEAN PLT VOLUME 8.9 fl (7.5-11.1); PLATELET COUNT 481 10^3/uL (134-434); RBC 5.34 M/mm3 (4.00-5.60); RDW 14.6 % (11.9-15.9)
[2024-05-26 16:42] LABS: POTASSIUM 5.1 mmol/L (3.5-5.1)
[2024-05-26 16:44] LABS: CALCIUM 9.4 mg/dL (8.5-10.1)
[2024-05-26 16:45] LABS: ALBUMIN 3.2 g/dl (3.4-5.0); BLOOD UREA NITROGEN 53.2 mg/dL (7-18)
[2024-05-26 16:48] LABS: CREATININE 1.6 mg/dL (0.55-1.3)
[2024-05-26 16:49] LABS: INR 1.91 (0.83-1.09); PROTHROMBIN TIME (PATIENT) 21.2 SEC (9.7-13.0)
[2024-05-26 16:50] LABS: BILIRUBIN,TOTAL 0.6 mg/dL (0.2-1); TOT PROT 6.9 g/dl (6.4-8.2)
[2024-05-26 16:51] LABS: WHITE BLOOD COUNT 30.3 K/mm3 (4.0-10.0)
[2024-05-26 16:52] LABS: ACTIVATED PTT 34.6 SECONDS (25.2-36.5)
[2024-05-26 17:51] LABS: ERYTHROCYTE SEDIMENTATION RATE 31 mm/hr (0-20)
[2024-05-26 17:55] LABS: HIV INTERPRETATION NEGATIVE (NEGATIVE)
[2024-05-26] MEDS: PIPERACILLIN/TAZOB 4.5 GM 4.5 GM in DEXTROSE 5%-WATER 100 ML IVPB ONE (18:08)
[2024-05-26] MEDS ORDERED: PIPERACILLIN/TAZOB 4.5 GM 4.5 GM/100 ML BAG IVPB ONE (18:09)
[2024-05-26] MEDS ORDERED: VANCOMYCIN 1 GRAM (PRE-DOCKED) 1,000 MG/250 ML BAG IVPB ONE ×2 (18:09→18:54)
[2024-05-26] MEDS: SODIUM CHLORIDE 1,000 ML IV STA (18:57)
[2024-05-26] MEDS: VANCOMYCIN 1,000 MG in DEXTROSE 5%-WATER - 250 ML IVPB ONE (18:57)
[2024-05-26 19:06] LABS: ANISOCYTOSIS 0; MACROCYTOSIS 0
[2024-05-26] MEDS: NYSTATIN 100,000 UNIT/GM TOPICAL CREAM 15 GM TUBE TP ONE (20:24)
[2024-05-26 21:36] LABS: EPI CELLS 7 /uL (0-25.1); HYALINE CASTS 0 /uL (0-3.1); PH,URINE 5.5 (5.0-8.0); URINE APPEARANCE CLEAR; URINE BACTERIA 1825 /uL (0-1359); URINE BILIRUBIN NEGATIVE (NEGATIVE); URINE COLOR YELLOW; URINE GLUCOSE (UA) TRACE (NEGATIVE); URINE KETONE NEGATIVE (NEGATIVE); URINE LEUK ESTERASE 1+ (NEGATIVE); URINE NITRITE POSITIVE (NEGATIVE); URINE PROTEIN NEGATIVE (NEGATIVE); URINE RBC 3 /uL (0-23.9); URINE UROBILINOGEN 0.2 mg/dL (0.2-1.0); URINE WBC 96 /uL (0-25.8)
[2024-05-26] MEDS ORDERED: ACETAMINOPHEN 325 MG TABLET (FP) ONE (23:27)
[2024-05-26] MEDS: ACETAMINOPHEN 500 MG TABLET (FP) PO ONE (23:30)
[2024-05-27] MEDS ORDERED: PIPERACILLIN/TAZOB 3.375 GM 3.375 GM/50 ML BAG IVPB ONE (01:51)
[2024-05-27] MEDS: PIPERACILLIN/TAZOB 3.375 GM 3.375 GM in DEXTROSE 5%-WATER - 50 ML IVPB SCH (02:03)
[2024-05-27] MEDS ORDERED: MORPHINE SULFATE 2 MG/ML SYRINGE ONE (02:33)
[2024-05-27] MEDS: morphine CARPU-JECT 2 MG/1 ML DISP.SYRIN IVPUSH ONE (02:37)
[2024-05-27] MEDS: MORPHINE SULFATE 2 MG/ML SYRINGE IVPUSH ONE (03:33)
[2024-05-27 04:54] LABS: EPI CELLS 4 /uL (0-25.1); HYALINE CASTS 1 /uL (0-3.1); PH,URINE 5.5 (5.0-8.0); URINE APPEARANCE CLEAR; URINE BACTERIA 46 /uL (0-1359); URINE BILIRUBIN NEGATIVE (NEGATIVE); URINE COLOR YELLOW; URINE GLUCOSE (UA) NEGATIVE (NEGATIVE); URINE KETONE NEGATIVE (NEGATIVE); URINE LEUK ESTERASE 2+ (NEGATIVE); URINE NITRITE NEGATIVE (NEGATIVE); URINE PROTEIN NEGATIVE (NEGATIVE); URINE RBC 14 /uL (0-23.9); URINE UROBILINOGEN 0.2 mg/dL (0.2-1.0); URINE WBC 953 /uL (0-25.8)
[2024-05-27] MEDS ORDERED: HEPARIN NA (PORCINE) 5,000 UNITS/ML 1ML VIAL ONE (06:07)
[2024-05-27 06:24] LABS: BASO % 0.3 % (0-2.0); EOS % 1.5 % (0-4.5); HEMATOCRIT 39.8 % (35.4-49); LYMPH % 6.3 % (8-40); MCH 27.2 pg (25.7-33.7); MCHC 32.7 g/dl (32.0-35.9); MEAN CELL VOLUME 83.3 fl (80-96); MEAN PLT VOLUME 8.9 fl (7.5-11.1); MONO % 7.1 % (3.8-10.2); NEUT % 84.8 % (42.8-82.8); PLATELET COUNT 381 10^3/uL (134-434); RBC 4.78 M/mm3 (4.00-5.60); RDW 14.7 % (11.9-15.9); WHITE BLOOD COUNT 18.6 K/mm3 (4.0-10.0)
[2024-05-27] MEDS: VANCOMYCIN/WATER 2 GRAMS 2,000 MG/400 ML PIGGYBACK IVPB SCH (06:24)
[2024-05-27] MEDS: HEPARIN NA (PORCINE) 5,000 UNITS/ML 1ML VIAL SQ SCH (06:24)
[2024-05-27 06:43] LABS: POTASSIUM 4.7 mmol/L (3.5-5.1)
[2024-05-27 06:45] LABS: CALCIUM 8.4 mg/dL (8.5-10.1)
[2024-05-27 06:46] LABS: ALBUMIN 2.6 g/dl (3.4-5.0); BLOOD UREA NITROGEN 37.2 mg/dL (7-18); MAGNESIUM 2.5 mg/dL (1.8-2.4)
[2024-05-27 06:49] LABS: CREATININE 1.1 mg/dL (0.55-1.3); PHOSPHOROUS 4.1 mg/dL (2.5-4.9)
[2024-05-27 06:50] LABS: BILIRUBIN,TOTAL 0.5 mg/dL (0.2-1); TOT PROT 5.8 g/dl (6.4-8.2)
[2024-05-27 06:51] LABS: CHOLESTEROL 116 mg/dL (50-200); LDL CHOLESTEROL (ONLY SJRH) 66 mg/dL (5-100)
[2024-05-27 06:54] LABS: HDL CHOLESTEROL 37 mg/dL (40-60)
[2024-05-27] MEDS: SODIUM CHLORIDE 1,000 ML IV SCH (09:31)
[2024-05-27] MEDS: APIXABAN 5 MG TABLET PO SCH (10:34)
[2024-05-27] MEDS: ACETAMINOPHEN 325 MG TABLET (FP) PO PRN (10:34)
[2024-05-27 10:56] VITALS: BMI 53.6
[2024-05-27] MEDS ORDERED: INSULIN ASPART SLIDING SCALE (NOVOLOG) 1 VIAL SQ ONE (18:52)
[2024-05-27] MEDS: INSULIN ASPART SLIDING SCALE (NOVOLOG) 1 VIAL SQ SCH (18:53)
[2024-05-27] MEDS: PIPERACILLIN/TAZOB 4.5 GM 4.5 GM in DEXTROSE 5%-WATER 100 ML IVPB SCH (22:51)
[2024-05-28] MEDS ORDERED: PIPERACILLIN/TAZOB 3.375 GM 3.375 GM in DEXTROSE 5%-WATER - 50 ML IVPB SCH (03:00)
[2024-05-28] MEDS ORDERED: VANCOMYCIN/WATER 2 GRAMS 2,000 MG/400 ML PIGGYBACK IVPB SCH (07:00)
[2024-05-28] MEDS: VANCOMYCIN PREMIX 1.5 GM 1,500 MG/300 ML BAG IVPB SCH (07:17)
[2024-05-28 10:25] LABS: BASO % 0.4 % (0-2.0); EOS % 2.2 % (0-4.5); HEMATOCRIT 38.4 % (35.4-49); HEMOGLOBIN 12.7 GM/dL (11.7-16.9); LYMPH % 7.8 % (8-40); MCH 27.5 pg (25.7-33.7); MCHC 33.1 g/dl (32.0-35.9); MEAN CELL VOLUME 83.1 fl (80-96); MEAN PLT VOLUME 9.1 fl (7.5-11.1); MONO % 5.3 % (3.8-10.2); NEUT % 84.3 % (42.8-82.8); PLATELET COUNT 327 10^3/uL (134-434); RBC 4.62 M/mm3 (4.00-5.60); RDW 15.1 % (11.9-15.9)
[2024-05-28] MEDS: INSULIN (LEVEMIR) 100 UNITS/ML UNITS SQ ONE (10:47)
[2024-05-28] MEDS: ASCORBIC ACID 250 MG TABLET (FP) PO SCH (10:49)
[2024-05-28] MEDS: MULTIVITAMINS (DAILY MVI) TABLET (FP) PO SCH (10:49)
[2024-05-28 10:53] LABS: POTASSIUM 4.5 mmol/L (3.5-5.1)
[2024-05-28 10:58] LABS: ALBUMIN 2.5 g/dl (3.4-5.0); BLOOD UREA NITROGEN 19.5 mg/dL (7-18); CALCIUM 8.4 mg/dL (8.5-10.1)
[2024-05-28 11:01] LABS: CREATININE 0.8 mg/dL (0.55-1.3)
[2024-05-28 11:03] LABS: BILIRUBIN,TOTAL 0.4 mg/dL (0.2-1); TOT PROT 5.6 g/dl (6.4-8.2)
[2024-05-29] MEDS: FUROSEMIDE 20 MG TABLET (FP) PO SCH (10:52)
[2024-05-29] MEDS: INSULIN (LEVEMIR) 100 UNITS/ML UNITS SQ SCH (13:26)
[2024-05-30 10:29] LABS: BASO % 0.5 % (0-2.0); EOS % 3.9 % (0-4.5); HEMATOCRIT 37.2 % (35.4-49); HEMOGLOBIN 12.2 GM/dL (11.7-16.9); MCH 27.8 pg (25.7-33.7); MCHC 32.9 g/dl (32.0-35.9); MEAN CELL VOLUME 84.3 fl (80-96); MEAN PLT VOLUME 8.5 fl (7.5-11.1); MONO % 5.2 % (3.8-10.2); NEUT % 80.4 % (42.8-82.8); PLATELET COUNT 321 10^3/uL (134-434); RBC 4.41 M/mm3 (4.00-5.60); RDW 14.9 % (11.9-15.9); WHITE BLOOD COUNT 12.1 K/mm3 (4.0-10.0)
[2024-05-30 10:44] LABS: POTASSIUM 3.9 mmol/L (3.5-5.1)
[2024-05-30 10:49] LABS: BLOOD UREA NITROGEN 11.2 mg/dL (7-18); CALCIUM 8.3 mg/dL (8.5-10.1)
[2024-05-30 10:52] LABS: ALBUMIN 2.3 g/dl (3.4-5.0); CREATININE 0.7 mg/dL (0.55-1.3)
[2024-05-30 10:54] LABS: BILIRUBIN,TOTAL 0.3 mg/dL (0.2-1); TOT PROT 5.2 g/dl (6.4-8.2)
[2024-05-30] MEDS: MINERAL OIL/PET HY-PHL TOPICAL OINTMENT 454 GM JAR TP SCH (11:49)
[2024-05-30] MEDS: LACTOBACILLUS ACIDOPHILUS 1 TABLET PO SCH (16:02)
[2024-05-31] MEDS ORDERED: INSULIN (LEVEMIR) 100 UNITS/ML UNITS SQ ONE (05:26)
[2024-05-31 09:26] LABS: POTASSIUM 4.1 mmol/L (3.5-5.1)
[2024-05-31 09:27] LABS: BASO % 0.6 % (0-2.0); EOS % 4.8 % (0-4.5); HEMATOCRIT 37.3 % (35.4-49); HEMOGLOBIN 12.2 GM/dL (11.7-16.9); LYMPH % 10.1 % (8-40); MCH 27.6 pg (25.7-33.7); MCHC 32.6 g/dl (32.0-35.9); MEAN CELL VOLUME 84.7 fl (80-96); MEAN PLT VOLUME 8.4 fl (7.5-11.1); MONO % 5.2 % (3.8-10.2); NEUT % 79.3 % (42.8-82.8); PLATELET COUNT 313 10^3/uL (134-434); RBC 4.41 M/mm3 (4.00-5.60); RDW 14.7 % (11.9-15.9); WHITE BLOOD COUNT 11.8 K/mm3 (4.0-10.0)
[2024-05-31 09:28] LABS: CALCIUM 8.5 mg/dL (8.5-10.1)
[2024-05-31 09:29] LABS: BLOOD UREA NITROGEN 12.2 mg/dL (7-18)
[2024-05-31 09:32] LABS: CREATININE 0.7 mg/dL (0.55-1.3)
[2024-06-01] MEDS ORDERED: INSULIN (LEVEMIR) 100 UNITS/ML UNITS SQ ONE (07:03)
[2024-06-03] MEDS: SULFAMETHOXAZOLE/TRIMETHOPRIM 800MG/160MG D.S. TABLET PO SCH (09:30)
[2024-06-04 08:51] LABS: BASO % 1.3 % (0-2.0); EOS % 4.8 % (0-4.5); HEMATOCRIT 40.3 % (35.4-49); HEMOGLOBIN 13.2 GM/dL (11.7-16.9); LYMPH % 10.4 % (8-40); MCH 28.2 pg (25.7-33.7); MCHC 32.9 g/dl (32.0-35.9); MEAN CELL VOLUME 85.6 fl (80-96); MEAN PLT VOLUME 8.7 fl (7.5-11.1); MONO % 4.7 % (3.8-10.2); NEUT % 78.8 % (42.8-82.8); PLATELET COUNT 245 10^3/uL (134-434); RDW 14.6 % (11.9-15.9); WHITE BLOOD COUNT 8.7 K/mm3 (4.0-10.0)
[2024-06-04 09:13] LABS: POTASSIUM 4.6 mmol/L (3.5-5.1)
[2024-06-04 09:20] LABS: ALBUMIN 2.5 g/dl (3.4-5.0); CALCIUM 8.8 mg/dL (8.5-10.1)
[2024-06-04 09:21] LABS: BLOOD UREA NITROGEN 12.6 mg/dL (7-18)
[2024-06-04 09:24] LABS: CREATININE 0.7 mg/dL (0.55-1.3)
[2024-06-04 09:25] LABS: BILIRUBIN,TOTAL 0.3 mg/dL (0.2-1); TOT PROT 5.8 g/dl (6.4-8.2)
[2024-06-05 07:11] VITALS: RESP 20
[2024-06-05] MEDS ORDERED: INSULIN ASPART SLIDING SCALE (NOVOLOG) 1 VIAL SQ ONE ×2 (08:01→11:20)
[2024-06-05 09:48] LABS: BASO % 0.5 % (0-2.0); EOS % 4.9 % (0-4.5); HEMATOCRIT 41.2 % (35.4-49); HEMOGLOBIN 13.7 GM/dL (11.7-16.9); LYMPH % 10.9 % (8-40); MCH 27.9 pg (25.7-33.7); MCHC 33.2 g/dl (32.0-35.9); MEAN CELL VOLUME 83.9 fl (80-96); MEAN PLT VOLUME 8.2 fl (7.5-11.1); MONO % 5.1 % (3.8-10.2); NEUT % 78.6 % (42.8-82.8); PLATELET COUNT 273 10^3/uL (134-434); RBC 4.91 M/mm3 (4.00-5.60); RDW 15.4 % (11.9-15.9); WHITE BLOOD COUNT 8.9 K/mm3 (4.0-10.0)
[2024-06-05 10:11] LABS: POTASSIUM 4.5 mmol/L (3.5-5.1)
[2024-06-05 10:15] LABS: ALBUMIN 2.7 g/dl (3.4-5.0); BLOOD UREA NITROGEN 14.5 mg/dL (7-18); CALCIUM 8.8 mg/dL (8.5-10.1)
[2024-06-05 10:18] LABS: CREATININE 0.8 mg/dL (0.55-1.3)
[2024-06-05 10:19] LABS: BILIRUBIN,TOTAL 0.2 mg/dL (0.2-1); TOT PROT 6.1 g/dl (6.4-8.2)
[2024-06-06 10:10] LABS: BASO % 0.6 % (0-2.0); EOS % 5.2 % (0-4.5); HEMATOCRIT 40.6 % (35.4-49); HEMOGLOBIN 13.6 GM/dL (11.7-16.9); LYMPH % 10.8 % (8-40); MCH 27.9 pg (25.7-33.7); MCHC 33.4 g/dl (32.0-35.9); MEAN CELL VOLUME 83.4 fl (80-96); MEAN PLT VOLUME 8.4 fl (7.5-11.1); MONO % 4.9 % (3.8-10.2); NEUT % 78.5 % (42.8-82.8); PLATELET COUNT 288 10^3/uL (134-434); RBC 4.87 M/mm3 (4.00-5.60); RDW 15.3 % (11.9-15.9); WHITE BLOOD COUNT 8.2 K/mm3 (4.0-10.0)
[2024-06-06 10:26] LABS: POTASSIUM 4.3 mmol/L (3.5-5.1)
[2024-06-06 10:33] LABS: ALBUMIN 2.7 g/dl (3.4-5.0); CALCIUM 8.9 mg/dL (8.5-10.1)
[2024-06-06 10:34] LABS: BLOOD UREA NITROGEN 16.1 mg/dL (7-18)
[2024-06-06 10:37] LABS: CREATININE 0.9 mg/dL (0.55-1.3)
[2024-06-06 10:38] LABS: BILIRUBIN,TOTAL 0.3 mg/dL (0.2-1); TOT PROT 5.9 g/dl (6.4-8.2)
[2024-06-06 13:37] VITALS: BP 145/81; PULSE 79; TEMP 98.4
== END 2024-06-06 14:49 | DRG 871 ==
LOC: JER 14:58 → JERBED 18:31 → J8W 05-27 07:21
PROVIDERS: ADMIT Internal Medicine; ATTEND Nurse Practitioner Family
DX: A41.89 Other specified sepsis (principal); L89.313 Pressure ulcer of right buttock, stage 3; L89.323 Pressure ulcer of left buttock, stage 3; E87.1 Hypo-osmolality and hyponatremia; L03.115 Cellulitis of right lower limb; L03.116 Cellulitis of left lower limb; Z68.43 Body mass index [BMI] 50.0-59.9, adult; N17.9 Acute kidney failure, unspecified; N39.0 Urinary tract infection, site not specified; L97.828 Non-pressure chronic ulcer of other part of left lower leg with other specified severity; L97.818 Non-pressure chronic ulcer of other part of right lower leg with other specified severity; M21.961 Unspecified acquired deformity of right lower leg; E66.01 Morbid (severe) obesity due to excess calories; E11.65 Type 2 diabetes mellitus with hyperglycemia; I87.8 Other specified disorders of veins; D75.839 Thrombocytosis, unspecified; M54.30 Sciatica, unspecified side; D72.829 Elevated white blood cell count, unspecified; B96.1 Klebsiella pneumoniae [K. pneumoniae] as the cause of diseases classified elsewhere; B95.62 Methicillin resistant Staphylococcus aureus infection as the cause of diseases classified elsewhere
CPT/HCPCS: 36415; 71045-TC-FY; 73590-TC-LT-FY; 73590-TC-RT-FY; 73610-TC-LT-FY; 73610-TC-RT-FY; 73630-TC-LT; 73630-TC-RT-FY; 76775-TC; 80048; 80053; 80061; 81003; 82550; 82962; 83036; 83735; 84100; 84443; 85025; 85610; 85651; 85730; 86140; 86803; 87040; 87070; 87077; 87081; 87086; 87186; 87205; 87389; 87635; 93005; 93010; 93306-TC; 93970-TC; 97116-GP; 97161-GP; 99285-25; G0480; J1644

== ENCOUNTER 2024-11-16 13:32 | Inpatient (IN) | payer BC ==
[2024-11-16] MEDS ORDERED: VANCOMYCIN HCL 1,500 MG in DEXTROSE 5%-WATER - 500 ML IVPB ONE (15:19)
[2024-11-16 16:08] LABS: BASO % 0.7 % (0-2.0); HEMATOCRIT 40.6 % (35.4-49); HEMOGLOBIN 13.2 GM/dL (11.7-16.9); MCH 28.1 pg (25.7-33.7); MCHC 32.6 g/dl (32.0-35.9); MEAN CELL VOLUME 86.2 fl (80-96); MEAN PLT VOLUME 8.2 fl (7.5-11.1); NEUT % 75.3 % (42.8-82.8); PLATELET COUNT 379 10^3/uL (134-434); WHITE BLOOD COUNT 11.7 K/mm3 (4.0-10.0)
[2024-11-16] MEDS ORDERED: ACETAMINOPHEN INJECTION 100 ML ONE (16:09)
[2024-11-16] MEDS: ACETAMINOPHEN 1000 MG/100 ML BAG IVPB ONE (16:15)
[2024-11-16] MEDS: SODIUM CHLORIDE 0.9% 500 ML INFUS.BAG IV ONE (16:15)
[2024-11-16 16:31] LABS: POTASSIUM 4.3 mmol/L (3.5-5.1)
[2024-11-16 16:34] LABS: ALBUMIN 3.4 g/dl (3.4-5.0); BLOOD UREA NITROGEN 15.2 mg/dL (7-18); MAGNESIUM 2.3 mg/dL (1.8-2.4)
[2024-11-16 16:37] LABS: CREATININE 0.8 mg/dL (0.55-1.3)
[2024-11-16 16:38] LABS: BILIRUBIN,TOTAL 0.3 mg/dL (0.2-1); TOT PROT 6.9 g/dl (6.4-8.2)
[2024-11-16 16:42] LABS: N-TERMINAL BNP 24.2 pg/ml (5-125)
[2024-11-16 17:07] LABS: PH,URINE 6.5 (5.0-8.0); URINE APPEARANCE CLEAR; URINE BILIRUBIN NEGATIVE (NEGATIVE); URINE COLOR YELLOW; URINE GLUCOSE (UA) NEGATIVE (NEGATIVE); URINE KETONE NEGATIVE (NEGATIVE); URINE LEUK ESTERASE NEGATIVE (NEGATIVE); URINE NITRITE NEGATIVE (NEGATIVE); URINE PROTEIN NEGATIVE (NEGATIVE); URINE UROBILINOGEN 0.2 mg/dL (0.2-1.0)
[2024-11-16 17:27] LABS: HIV INTERPRETATION NEGATIVE (NEGATIVE)
[2024-11-16] MEDS ORDERED: PIPERACILLIN/TAZOB 4.5 GM 4.5 GM/100 ML BAG IVPB ONE (17:36)
[2024-11-16] MEDS: PIPERACILLIN/TAZOB 4.5 GM 4.5 GM in DEXTROSE 5%-WATER 100 ML IVPB ONE (17:42)
[2024-11-16] MEDS: VANCOMYCIN PREMIX 1.5 GM 1,500 MG/300 ML BAG IVPB ONE (18:27)
[2024-11-17] MEDS: FUROSEMIDE 40 MG/4 ML INJECTABLE VIAL IVPUSH SCH (02:05)
[2024-11-17] MEDS: ACETAMINOPHEN 1000 MG/100 ML BAG IVPB PRN (02:09)
[2024-11-17] MEDS: PIPERACILLIN/TAZOB 3.375 GM 50 ML IVPB SCH (04:56)
[2024-11-17] MEDS: VANCOMYCIN HCL IN 5 % DEXTROSE 1,500 MG/300 ML BAG IVPB SCH (05:32)
[2024-11-17] MEDS: HEPARIN NA (PORCINE) 5,000 UNITS/ML 1ML VIAL SQ SCH (05:39)
[2024-11-17] MEDS: INSULIN ASPART SLIDING SCALE (NOVOLOG) 1 VIAL SQ SCH (06:34)
[2024-11-17 07:07] VITALS: BMI 54.6
[2024-11-17 09:43] LABS: HEMATOCRIT 37.3 % (35.4-49); HEMOGLOBIN 12.8 GM/dL (11.7-16.9); MCH 28.9 pg (25.7-33.7); MCHC 34.3 g/dl (32.0-35.9); MEAN CELL VOLUME 84.4 fl (80-96); MEAN PLT VOLUME 8.8 fl (7.5-11.1); PLATELET COUNT 360 10^3/uL (134-434); RBC 4.42 M/mm3 (4.00-5.60); RDW 14.1 % (11.9-15.9); WHITE BLOOD COUNT 10.7 K/mm3 (4.0-10.0)
[2024-11-17] MEDS ORDERED: APIXABAN 5 MG TABLET PO SCH (10:00)
[2024-11-17] MEDS: APIXABAN 5 MG TABLET PO SCH (10:05)
[2024-11-17] MEDS: MULTIVITAMINS (DAILY MVI) TABLET (FP) PO SCH (10:05)
[2024-11-17] MEDS: ASCORBIC ACID 250 MG TABLET (FP) PO SCH (10:05)
[2024-11-17 10:38] LABS: CALCIUM 8.6 mg/dL (8.5-10.1)
[2024-11-17 10:39] LABS: BLOOD UREA NITROGEN 11.4 mg/dL (7-18)
[2024-11-17 10:42] LABS: CREATININE 0.8 mg/dL (0.55-1.3)
[2024-11-17] MEDS: CEFTRIAXONE 2 GM-D5W BAG 2 GM/50 ML BAG IVPB SCH (18:51)
[2024-11-17] MEDS: MINERAL OIL/PET HY-PHL TOPICAL OINTMENT 454 GM JAR TP SCH (18:55)
[2024-11-17] MEDS: VANCOMYCIN PREMIX 1.5 GM 1,500 MG/300 ML BAG IVPB SCH (20:22)
[2024-11-17] MEDS: CALCIUM ACETATE/AL SULFATE TOP 1.9 GM/PACKET PACKET TP SCH (20:23)
[2024-11-17] MEDS: SILVER SULFADIAZINE 1% TOP CREAM 50 GM JAR TP SCH (20:37)
[2024-11-17] MEDS: SILVER SULFADIAZINE 1% TOP CREAM 400 GM JAR TP SCH (21:36)
[2024-11-18 09:45] LABS: EOS % 4.7 % (0-4.5); HEMOGLOBIN 12.8 GM/dL (11.7-16.9); LYMPH % 16.1 % (8-40); MCH 28.3 pg (25.7-33.7); MCHC 32.8 g/dl (32.0-35.9); MEAN CELL VOLUME 86.2 fl (80-96); MEAN PLT VOLUME 8.6 fl (7.5-11.1); MONO % 6.3 % (3.8-10.2); NEUT % 71.9 % (42.8-82.8); PLATELET COUNT 340 10^3/uL (134-434); RBC 4.52 M/mm3 (4.00-5.60); RDW 13.7 % (11.9-15.9); WHITE BLOOD COUNT 8.9 K/mm3 (4.0-10.0)
[2024-11-18 10:20] LABS: BLOOD UREA NITROGEN 10.1 mg/dL (7-18); CALCIUM 8.5 mg/dL (8.5-10.1); MAGNESIUM 2.3 mg/dL (1.8-2.4)
[2024-11-18 10:24] LABS: CREATININE 0.8 mg/dL (0.55-1.3)
[2024-11-18 10:25] LABS: BILIRUBIN,TOTAL 0.4 mg/dL (0.2-1); TOT PROT 6.3 g/dl (6.4-8.2)
[2024-11-19] MEDS: ASPIRIN 81 MG CHEWABLE TABLETS PO ONE (02:00)
[2024-11-19] MEDS ORDERED: PIPERACILLIN/TAZOB 3.375 GM 50 ML IVPB SCH (03:00)
[2024-11-19] MEDS ORDERED: METHYL SALICYLATE/MENTHOL 30 GM TUBE TP PRN (05:37)
[2024-11-19] MEDS ORDERED: VANCOMYCIN HCL IN 5 % DEXTROSE 1,500 MG/300 ML BAG IVPB SCH (06:00)
[2024-11-19] MEDS: ACETAMINOPHEN 1000 MG/100 ML BAG IVPB ONE (06:00)
[2024-11-19 08:52] LABS: HEMATOCRIT 41.1 % (35.4-49); HEMOGLOBIN 13.7 GM/dL (11.7-16.9); LYMPH % 13.8 % (8-40); MCH 28.5 pg (25.7-33.7); MCHC 33.4 g/dl (32.0-35.9); MEAN CELL VOLUME 85.2 fl (80-96); MEAN PLT VOLUME 8.7 fl (7.5-11.1); NEUT % 74.2 % (42.8-82.8); PLATELET COUNT 381 10^3/uL (134-434); RBC 4.82 M/mm3 (4.00-5.60); RDW 13.8 % (11.9-15.9); WHITE BLOOD COUNT 9.7 K/mm3 (4.0-10.0)
[2024-11-19 08:53] LABS: BASO % 0.7 % (0-2.0); EOS % 5.1 % (0-4.5); MONO % 6.2 % (3.8-10.2)
[2024-11-19 09:47] LABS: POTASSIUM 4.2 mmol/L (3.5-5.1)
[2024-11-19 10:12] LABS: ALBUMIN 3.2 g/dl (3.4-5.0); BLOOD UREA NITROGEN 12.9 mg/dL (7-18); MAGNESIUM 2.3 mg/dL (1.8-2.4)
[2024-11-19 10:14] LABS: CREATININE 0.8 mg/dL (0.55-1.3)
[2024-11-19 10:16] LABS: BILIRUBIN,TOTAL 0.4 mg/dL (0.2-1); TOT PROT 6.5 g/dl (6.4-8.2)
[2024-11-19 11:03] LABS: CALCIUM 8.8 mg/dL (8.5-10.1)
[2024-11-20 10:52] LABS: BASO % 0.8 % (0-2.0); EOS % 3.6 % (0-4.5); HEMOGLOBIN 14.9 GM/dL (11.7-16.9); LYMPH % 12.1 % (8-40); MCH 28.3 pg (25.7-33.7); MCHC 33.2 g/dl (32.0-35.9); MEAN CELL VOLUME 85.2 fl (80-96); MEAN PLT VOLUME 8.8 fl (7.5-11.1); MONO % 5.2 % (3.8-10.2); NEUT % 78.3 % (42.8-82.8); PLATELET COUNT 421 10^3/uL (134-434); RBC 5.28 M/mm3 (4.00-5.60); RDW 13.8 % (11.9-15.9); WHITE BLOOD COUNT 11.7 K/mm3 (4.0-10.0)
[2024-11-20 11:09] LABS: POTASSIUM 4.2 mmol/L (3.5-5.1)
[2024-11-20 11:11] LABS: CALCIUM 8.8 mg/dL (8.5-10.1)
[2024-11-20 11:13] LABS: ALBUMIN 3.1 g/dl (3.4-5.0); MAGNESIUM 2.3 mg/dL (1.8-2.4)
[2024-11-20 11:16] LABS: CREATININE 0.9 mg/dL (0.55-1.3)
[2024-11-20 11:17] LABS: BILIRUBIN,TOTAL 0.4 mg/dL (0.2-1); TOT PROT 6.6 g/dl (6.4-8.2)
[2024-11-20] MEDS: ACETAMINOPHEN 1000 MG/100 ML BAG IVPB PRN (14:56)
[2024-11-21 10:51] LABS: BASO % 0.9 % (0-2.0); EOS % 5.8 % (0-4.5); HEMATOCRIT 41.8 % (35.4-49); HEMOGLOBIN 14.1 GM/dL (11.7-16.9); LYMPH % 13.6 % (8-40); MCH 28.9 pg (25.7-33.7); MCHC 33.8 g/dl (32.0-35.9); MEAN CELL VOLUME 85.5 fl (80-96); MEAN PLT VOLUME 8.7 fl (7.5-11.1); NEUT % 73.7 % (42.8-82.8); PLATELET COUNT 380 10^3/uL (134-434); RBC 4.88 M/mm3 (4.00-5.60); RDW 13.8 % (11.9-15.9)
[2024-11-21 11:01] LABS: ALBUMIN 3.2 g/dl (3.4-5.0); BLOOD UREA NITROGEN 15.7 mg/dL (7-18); CALCIUM 8.8 mg/dL (8.5-10.1); MAGNESIUM 2.3 mg/dL (1.8-2.4)
[2024-11-21 11:05] LABS: BILIRUBIN,TOTAL 0.3 mg/dL (0.2-1); CREATININE 0.9 mg/dL (0.55-1.3); TOT PROT 6.4 g/dl (6.4-8.2)
[2024-11-21] MEDS ORDERED: ACETAMINOPHEN 1000 MG/100 ML BAG IVPB PRN (15:29)
[2024-11-21] MEDS ORDERED: ACETAMINOPHEN 500 MG TABLET (FP) PO PRN (15:29)
[2024-11-22] MEDS: SULFAMETHOXAZOLE/TRIMETHOPRIM 800MG/160MG D.S. TABLET PO SCH (09:23)
[2024-11-22 09:44] LABS: BASO % 0.7 % (0-2.0); EOS % 5.1 % (0-4.5); HEMATOCRIT 41.6 % (35.4-49); HEMOGLOBIN 14.2 GM/dL (11.7-16.9); LYMPH % 13.6 % (8-40); MCH 28.9 pg (25.7-33.7); MEAN PLT VOLUME 8.7 fl (7.5-11.1); NEUT % 75.6 % (42.8-82.8); PLATELET COUNT 382 10^3/uL (134-434); RDW 13.9 % (11.9-15.9); WHITE BLOOD COUNT 10.9 K/mm3 (4.0-10.0)
[2024-11-22 10:20] LABS: POTASSIUM 3.9 mmol/L (3.5-5.1)
[2024-11-22 10:22] LABS: CALCIUM 8.6 mg/dL (8.5-10.1)
[2024-11-22 10:23] LABS: ALBUMIN 3.3 g/dl (3.4-5.0); MAGNESIUM 2.3 mg/dL (1.8-2.4)
[2024-11-22 10:26] LABS: CREATININE 0.8 mg/dL (0.55-1.3)
[2024-11-22 10:28] LABS: BILIRUBIN,TOTAL 0.3 mg/dL (0.2-1); TOT PROT 6.6 g/dl (6.4-8.2)
[2024-11-23 09:13] LABS: BASO % 0.6 % (0-2.0); EOS % 4.5 % (0-4.5); HEMATOCRIT 43.1 % (35.4-49); HEMOGLOBIN 14.3 GM/dL (11.7-16.9); LYMPH % 10.7 % (8-40); MCH 28.4 pg (25.7-33.7); MCHC 33.3 g/dl (32.0-35.9); MEAN CELL VOLUME 85.3 fl (80-96); MEAN PLT VOLUME 8.5 fl (7.5-11.1); MONO % 5.7 % (3.8-10.2); NEUT % 78.5 % (42.8-82.8); PLATELET COUNT 352 10^3/uL (134-434); RBC 5.05 M/mm3 (4.00-5.60); WHITE BLOOD COUNT 11.1 K/mm3 (4.0-10.0)
[2024-11-23 09:39] LABS: POTASSIUM 4.2 mmol/L (3.5-5.1)
[2024-11-23 09:42] LABS: ALBUMIN 3.2 g/dl (3.4-5.0); BLOOD UREA NITROGEN 14.6 mg/dL (7-18); CALCIUM 8.8 mg/dL (8.5-10.1)
[2024-11-23 09:43] LABS: MAGNESIUM 2.4 mg/dL (1.8-2.4)
[2024-11-23 09:46] LABS: CREATININE 0.9 mg/dL (0.55-1.3)
[2024-11-23 09:47] LABS: BILIRUBIN,TOTAL 0.3 mg/dL (0.2-1); TOT PROT 6.6 g/dl (6.4-8.2)
[2024-11-23 12:36] VITALS: BP 130/93; PULSE 78; RESP 20; TEMP 97.7
[2024-11-23] MEDS ORDERED: RAMIPRIL 1.25 MG CAPSULE PO SCH (13:30)
[2024-11-23] MEDS ORDERED: ATORVASTATIN CA 40 MG TABLET (FP) PO SCH (22:00)
== END 2024-11-23 13:08 | disposition home health service (06) | DRG 603 ==
LOC: JER 13:32 → JERBED 19:27 → J8W 21:54
PROVIDERS: ADMIT Student in an Organized Health Care Education/Training Program; ATTEND Internal Medicine
DX: L03.115 Cellulitis of right lower limb (principal); Z68.43 Body mass index [BMI] 50.0-59.9, adult; L03.116 Cellulitis of left lower limb; E66.01 Morbid (severe) obesity due to excess calories; E11.9 Type 2 diabetes mellitus without complications; I89.0 Lymphedema, not elsewhere classified; I87.2 Venous insufficiency (chronic) (peripheral)
CPT/HCPCS: 36415; 71045-TC-FY; 73590-TC-LT-FY; 73590-TC-RT-FY; 80048; 80053; 81003; 82962; 83036; 83735; 83880; 84300; 84443; 84484; 85025; 85027; 86803; 87040; 87086; 87186; 87389; 93005; 93010; 93970-TC; 97116-GP; 97161-GP; 99285-25; G0480; J0131; J1644

== ENCOUNTER 2024-11-29 06:29 | Inpatient (IN) | payer OTHER, BC ==
[2024-11-29] MEDS ORDERED: ACETAMINOPHEN INJECTION 100 ML ONE ×2 (07:22→10:55)
[2024-11-29] MEDS: ACETAMINOPHEN 1000 MG/100 ML BAG IVPB ONE (07:40)
[2024-11-29] MEDS ORDERED: HYDROmorphone HCL CARPU-JECT 2 MG/1 ML DISP.SYRIN ONE (07:48)
[2024-11-29] MEDS ORDERED: VANCOMYCIN 1 GM PREMIX (F) 1 GM/200 ML BAG ONE (07:49)
[2024-11-29 07:50] LABS: PH,URINE 5.5 (5.0-8.0); URINE APPEARANCE CLEAR; URINE BILIRUBIN NEGATIVE (NEGATIVE); URINE COLOR YELLOW; URINE GLUCOSE (UA) NEGATIVE (NEGATIVE); URINE KETONE NEGATIVE (NEGATIVE); URINE LEUK ESTERASE NEGATIVE (NEGATIVE); URINE NITRITE NEGATIVE (NEGATIVE); URINE PROTEIN NEGATIVE (NEGATIVE); URINE UROBILINOGEN 0.2 mg/dL (0.2-1.0)
[2024-11-29] MEDS: HYDROmorphone HCl 2 MG/ML VIAL IVPUSH ONE (07:55)
[2024-11-29] MEDS: VANCOMYCIN 1,000 MG in DEXTROSE 5%-WATER - 250 ML IVPB ONE (07:55)
[2024-11-29 08:00] LABS: BASO % 0.8 % (0-2.0); EOS % 1.9 % (0-4.5); HEMOGLOBIN 14.2 GM/dL (11.7-16.9); LYMPH % 6.4 % (8-40); MCH 28.7 pg (25.7-33.7); MCHC 33.1 g/dl (32.0-35.9); MEAN CELL VOLUME 86.7 fl (80-96); MEAN PLT VOLUME 9.1 fl (7.5-11.1); MONO % 5.1 % (3.8-10.2); NEUT % 85.8 % (42.8-82.8); PLATELET COUNT 382 10^3/uL (134-434); RBC 4.96 M/mm3 (4.00-5.60); RDW 13.7 % (11.9-15.9); WHITE BLOOD COUNT 14.7 K/mm3 (4.0-10.0)
[2024-11-29 08:12] LABS: INR 1.32 (0.83-1.09); PROTHROMBIN TIME (PATIENT) 14.4 SEC (9.7-13.0)
[2024-11-29 08:13] LABS: POTASSIUM 4.6 mmol/L (3.5-5.1)
[2024-11-29 08:15] LABS: ACTIVATED PTT 30.4 SECONDS (25.2-36.5); ALBUMIN 3.5 g/dl (3.4-5.0); BLOOD UREA NITROGEN 10.6 mg/dL (7-18); CALCIUM 9.3 mg/dL (8.5-10.1); MAGNESIUM 2.2 mg/dL (1.8-2.4)
[2024-11-29 08:20] LABS: BILIRUBIN,TOTAL 0.5 mg/dL (0.2-1); TOT PROT 7.2 g/dl (6.4-8.2)
[2024-11-29 08:21] LABS: CREATININE 0.8 mg/dL (0.55-1.3)
[2024-11-29 10:33] LABS: ERYTHROCYTE SEDIMENTATION RATE 25 mm/hr (0-20)
[2024-11-29] MEDS: CEFTRIAXONE 2,000 MG in DEXTROSE 5%-WATER - 50 ML IVPB ONE ×2 (10:52→10:57)
[2024-11-29] MEDS ORDERED: CEFTRIAXONE 2 GM-D5W BAG 2 GM/50 ML BAG IVPB ONE (10:56)
[2024-11-29] MEDS: FUROSEMIDE 40 MG/4 ML INJECTABLE VIAL IVPUSH ONE (10:57)
[2024-11-29] MEDS: APIXABAN 5 MG TABLET PO SCH (10:57)
[2024-11-29] MEDS: INSULIN ASPART SLIDING SCALE (NOVOLOG) 1 VIAL SQ SCH (13:02)
[2024-11-29] MEDS ORDERED: ACETAMINOPHEN 1000 MG/100 ML BAG IVPB PRN (14:00)
[2024-11-29] MEDS: VANCOMYCIN PREMIX 1.5 GM 1,500 MG/300 ML BAG IVPB SCH ×2 (14:18→16:31)
[2024-11-29 17:04] VITALS: BMI 52.5
[2024-11-29] MEDS ORDERED: VANCOMYCIN HCL 1,500 MG in DEXTROSE 5%-WATER - 250 ML IVPB SCH (22:00)
[2024-11-29] MEDS: ACETAMINOPHEN 325 MG TABLET (FP) PO PRN (22:04)
[2024-11-30] MEDS: FUROSEMIDE 40 MG/4 ML INJECTABLE VIAL IVPUSH SCH (06:00)
[2024-11-30 09:37] LABS: BASO % 0.5 % (0-2.0); EOS % 3.6 % (0-4.5); HEMATOCRIT 37.6 % (35.4-49); HEMOGLOBIN 12.7 GM/dL (11.7-16.9); LYMPH % 11.8 % (8-40); MCH 28.6 pg (25.7-33.7); MCHC 33.7 g/dl (32.0-35.9); MEAN CELL VOLUME 84.9 fl (80-96); MEAN PLT VOLUME 8.8 fl (7.5-11.1); NEUT % 77.1 % (42.8-82.8); PLATELET COUNT 331 10^3/uL (134-434); RBC 4.42 M/mm3 (4.00-5.60); RDW 13.6 % (11.9-15.9); WHITE BLOOD COUNT 9.9 K/mm3 (4.0-10.0)
[2024-11-30] MEDS: CEFTRIAXONE 2 GM-D5W BAG 2 GM/50 ML BAG IVPB SCH (09:38)
[2024-11-30 09:50] LABS: BLOOD UREA NITROGEN 9.9 mg/dL (7-18)
[2024-11-30 09:53] LABS: ALBUMIN 2.9 g/dl (3.4-5.0); CALCIUM 8.7 mg/dL (8.5-10.1)
[2024-11-30 09:54] LABS: MAGNESIUM 2.1 mg/dL (1.8-2.4)
[2024-11-30 09:56] LABS: CREATININE 0.7 mg/dL (0.55-1.3)
[2024-11-30 09:57] LABS: PHOSPHOROUS 3.2 mg/dL (2.5-4.9)
[2024-11-30 10:01] LABS: BILIRUBIN,TOTAL 0.4 mg/dL (0.2-1)
[2024-11-30] MEDS: SILVER SULFADIAZINE 1% TOP CREAM 50 GM JAR TP SCH (17:19)
[2024-12-01 13:35] LABS: BASO % 0.5 % (0-2.0); EOS % 5.1 % (0-4.5); HEMATOCRIT 39.2 % (35.4-49); HEMOGLOBIN 13.4 GM/dL (11.7-16.9); LYMPH % 12.8 % (8-40); MCH 28.7 pg (25.7-33.7); MCHC 34.1 g/dl (32.0-35.9); MEAN CELL VOLUME 84.1 fl (80-96); MEAN PLT VOLUME 8.6 fl (7.5-11.1); MONO % 6.3 % (3.8-10.2); NEUT % 75.3 % (42.8-82.8); PLATELET COUNT 354 10^3/uL (134-434); RBC 4.66 M/mm3 (4.00-5.60); RDW 13.4 % (11.9-15.9); WHITE BLOOD COUNT 9.8 K/mm3 (4.0-10.0)
[2024-12-01 13:50] LABS: BLOOD UREA NITROGEN 11.2 mg/dL (7-18); CALCIUM 8.9 mg/dL (8.5-10.1); MAGNESIUM 2.1 mg/dL (1.8-2.4)
[2024-12-01 13:54] LABS: CREATININE 0.7 mg/dL (0.55-1.3); PHOSPHOROUS 3.2 mg/dL (2.5-4.9)
[2024-12-01] MEDS: VANCOMYCIN PREMIX 1.5 GM 1,500 MG/300 ML BAG IVPB SCH (17:46)
[2024-12-02 08:28] LABS: BASO % 0.5 % (0-2.0); EOS % 5.4 % (0-4.5); HEMATOCRIT 40.1 % (35.4-49); HEMOGLOBIN 13.3 GM/dL (11.7-16.9); LYMPH % 10.8 % (8-40); MCH 28.5 pg (25.7-33.7); MCHC 33.3 g/dl (32.0-35.9); MEAN CELL VOLUME 85.5 fl (80-96); MEAN PLT VOLUME 8.5 fl (7.5-11.1); MONO % 5.2 % (3.8-10.2); NEUT % 78.1 % (42.8-82.8); PLATELET COUNT 387 10^3/uL (134-434); RBC 4.68 M/mm3 (4.00-5.60); RDW 13.7 % (11.9-15.9); WHITE BLOOD COUNT 10.7 K/mm3 (4.0-10.0)
[2024-12-02] MEDS: CALCIUM ACETATE/AL SULFATE TOP 1.9 GM/PACKET PACKET TP SCH (13:56)
[2024-12-03 08:30] LABS: BASO % 0.5 % (0-2.0); EOS % 5.3 % (0-4.5); HEMATOCRIT 40.8 % (35.4-49); HEMOGLOBIN 13.6 GM/dL (11.7-16.9); LYMPH % 13.6 % (8-40); MCH 28.3 pg (25.7-33.7); MCHC 33.4 g/dl (32.0-35.9); MEAN CELL VOLUME 84.7 fl (80-96); MEAN PLT VOLUME 8.2 fl (7.5-11.1); MONO % 6.6 % (3.8-10.2); PLATELET COUNT 392 10^3/uL (134-434); RBC 4.82 M/mm3 (4.00-5.60); RDW 13.5 % (11.9-15.9); WHITE BLOOD COUNT 10.6 K/mm3 (4.0-10.0)
[2024-12-03 08:40] LABS: POTASSIUM 3.9 mmol/L (3.5-5.1)
[2024-12-03 08:48] LABS: BLOOD UREA NITROGEN 17.4 mg/dL (7-18); CALCIUM 8.8 mg/dL (8.5-10.1)
[2024-12-03 08:51] LABS: CREATININE 0.8 mg/dL (0.55-1.3)
[2024-12-06] MEDS: AMOX TR/POT CLAV 875MG/125MG TABLETS (FP) PO SCH (08:44)
[2024-12-06] MEDS: HEPARIN NA (PORCINE) 5,000 UNITS/ML 1ML VIAL SQ SCH (13:46)
[2024-12-07 09:17] LABS: ABSOLUTE IMMATURE GRANULOCYTES 0.12 x10^3/uL (0.0-0.031); BASOPHILS # 0.08 x10^3/uL (0.01-0.08); EOSINOPHIL % 4.8 % (0.8-7.0); EOSINOPHILS # 0.55 x10^3/uL (0.04-0.54); HEMATOCRIT 43.3 % (40.1-51.0); MCHC 32.3 g/dl (32.3-36.5); MEAN CELL VOLUME 86.8 fl (79.0-92.2); MEAN PLT VOLUME 10.4 fl (9.4-12.4); MONOCYTE # 0.61 x10^3/uL (0.30-0.82); MONOCYTE % 5.3 % (5.3-12.2); PLATELET COUNT # 348 x10^3/uL (163-337)
[2024-12-07 09:52] LABS: CALCIUM 8.7 mg/dL (8.5-10.1)
[2024-12-07 09:53] LABS: BLOOD UREA NITROGEN 16.1 mg/dL (7-18)
[2024-12-07 09:56] LABS: CREATININE 0.8 mg/dL (0.55-1.3)
[2024-12-07] MEDS: RAMIPRIL 1.25 MG CAPSULE PO SCH (10:09)
[2024-12-07 19:05] VITALS: RESP 18
[2024-12-08] MEDS: FUROSEMIDE 20 MG TABLET (FP) PO SCH (06:11)
[2024-12-08 12:58] VITALS: TEMP 98.2
[2024-12-08 15:58] VITALS: BP 118/79; PULSE 86
== END 2024-12-08 17:36 | disposition home or self-care (01) | DRG 603 ==
LOC: JER 06:29 → UNDOADMOB 08:42 → JERBED 08:42 → INTOOBSV 08:42 → JERBED 10:43 → OBSVTOIN 11:22 → J5S 12:18
PROVIDERS: ADMIT Internal Medicine; ATTEND Internal Medicine
DX: L03.115 Cellulitis of right lower limb (principal); Z68.43 Body mass index [BMI] 50.0-59.9, adult; E11.9 Type 2 diabetes mellitus without complications; L03.116 Cellulitis of left lower limb; I10 Essential (primary) hypertension; E66.01 Morbid (severe) obesity due to excess calories; I89.0 Lymphedema, not elsewhere classified
CPT/HCPCS: 36415; 71045-TC-FY; 80048; 80053; 81003; 82962; 83036; 83735; 83880; 84100; 84484; 85025; 85610; 85651; 85730; 87040; 87086; 93005; 93010; 93970-TC; 97116-GP; 97162-GP; 99285-25; G0378; G0480; J0131; J1644